=== PATIENT | female | born 1955 | race Caucasian/White ===

== ENCOUNTER → 2023-11-09 06:32 | Day surgery (SDC) | payer MEDICARE, OTHER, SELFPAY ==
[2023-11-09 09:38] LABS: Glucose - Point of Care 224 mg/dl (70-99)
== END ==
LOC: GI 06:32
PROVIDERS: ATTENDING PHYSICIAN Internal Medicine
DX: D50.9 Iron deficiency anemia, unspecified (principal); Z79.01 Long term (current) use of anticoagulants; K63.89 Other specified diseases of intestine; K29.50 Unspecified chronic gastritis without bleeding; D12.6 Benign neoplasm of colon, unspecified; R13.10 Dysphagia, unspecified; K44.9 Diaphragmatic hernia without obstruction or gangrene; K22.89 Other specified disease of esophagus
CPT/HCPCS: 45338; 45335; 43239; 88305; 82962; 87220; 88342

== ENCOUNTER 2023-11-19 12:42 | Outpatient (RCR) | payer MEDICARE, OTHER, SELFPAY ==
[2023-11-19 13:10] VITALS: BP 159/72
[2023-11-19] MEDS: INJECTAFER 265 MG IV (13:24)
[2023-11-19 14:19] VITALS: BP 150/75
== END 2023-11-22 09:30 | disposition home or self-care (01) ==
LOC: OID 12:42
PROVIDERS: ATTENDING PHYSICIAN Internal Medicine; FAMILY PHYSICIAN Internal Medicine Cardiovascular Disease
DX: D64.9 Anemia, unspecified (principal); I48.91 Unspecified atrial fibrillation; J44.9 Chronic obstructive pulmonary disease, unspecified; Z79.01 Long term (current) use of anticoagulants
CPT/HCPCS: 96365; J1439

== ENCOUNTER 2023-11-25 13:48 | Outpatient (RCR) | payer MEDICARE, OTHER, SELFPAY ==
[2023-11-25 13:50] VITALS: BP 113/57
[2023-11-25] MEDS: INJECTAFER 265 MG IV (14:21)
[2023-11-25 15:15] VITALS: BP 117/53
== END 2023-11-26 08:56 | disposition home or self-care (01) ==
LOC: OID 13:48
PROVIDERS: ATTENDING PHYSICIAN Internal Medicine; FAMILY PHYSICIAN Internal Medicine Cardiovascular Disease
DX: D64.9 Anemia, unspecified (principal); I48.91 Unspecified atrial fibrillation; J44.9 Chronic obstructive pulmonary disease, unspecified; E66.01 Morbid (severe) obesity due to excess calories; Z68.39 Body mass index [BMI] 39.0-39.9, adult; Z79.01 Long term (current) use of anticoagulants; Z98.0 Intestinal bypass and anastomosis status
CPT/HCPCS: 96365; J1439

== ENCOUNTER → 2024-02-16 06:23 | Day surgery (SDC) | payer MEDICARE, OTHER, SELFPAY ==
[2024-02-16 07:46] LABS: Glucose - Point of Care 217 mg/dl (70-99)
== END ==
LOC: GI 06:23
PROVIDERS: ATTENDING PHYSICIAN Internal Medicine
DX: K52.9 Noninfective gastroenteritis and colitis, unspecified (principal); K51.40 Inflammatory polyps of colon without complications; K63.89 Other specified diseases of intestine; D50.9 Iron deficiency anemia, unspecified; Z79.01 Long term (current) use of anticoagulants; Z87.19 Personal history of other diseases of the digestive system; Z90.49 Acquired absence of other specified parts of digestive tract
CPT/HCPCS: 45338; 45331; 88305; 82962

== ENCOUNTER → 2024-02-24 09:50 | Outpatient (REF) | payer MEDICARE, OTHER, SELFPAY | LOC: HWEVLT 09:50 | PROVIDERS: ATTENDING PHYSICIAN Radiology Vascular & Interventional Radiology | DX: I83.893 Varicose veins of bilateral lower extremities with other complications (principal) | CPT/HCPCS: 93970 ==

== ENCOUNTER → 2024-04-11 09:54 | Outpatient (REF) | payer MEDICARE, OTHER, SELFPAY | LOC: MRI 3T 09:54 | PROVIDERS: ATTENDING PHYSICIAN Internal Medicine; FAMILY PHYSICIAN Physician Assistant Medical | DX: D50.0 Iron deficiency anemia secondary to blood loss (chronic) (principal); K52.9 Noninfective gastroenteritis and colitis, unspecified | CPT/HCPCS: 72197; 74183; A9575 ==

== ENCOUNTER → 2024-10-31 09:35 | Outpatient (REF) | payer MEDICARE, OTHER, SELFPAY | LOC: HWEVLT 09:35 | PROVIDERS: ATTENDING PHYSICIAN Radiology Vascular & Interventional Radiology | DX: I83.892 Varicose veins of left lower extremity with other complications (principal) | CPT/HCPCS: 36478; C1769 ==

== ENCOUNTER → 2024-11-15 11:39 | Outpatient (REF) | payer MEDICARE, OTHER, SELFPAY | LOC: HWEVLT 11:39 | PROVIDERS: ATTENDING PHYSICIAN Radiology Diagnostic Radiology | DX: I83.892 Varicose veins of left lower extremity with other complications (principal) | CPT/HCPCS: 93971 ==

== ENCOUNTER 2025-04-19 07:36 | Day surgery (SDC) | payer MEDICARE, OTHER, SELFPAY ==
[2025-04-19] VITALS (20 sets, daily range): BP systolic 96–137; BP diastolic 60–76; BMI 40.8
[2025-04-19] MEDS: LOW STRENGTH ASPIRIN 324 MG PO (08:21)
[2025-04-19 08:27] LABS: Glucose - Point of Care 203 mg/dl (70-99)
[2025-04-19 10:40] LABS: ACT-LR - POC 327 Seconds (116-155)
[2025-04-19 10:53] LABS: ACT-LR - POC 223 Seconds (116-155)
[2025-04-19 11:49] LABS: ACT-LR - POC 192 Seconds (116-155)
--- NOTE | 2025-04-19 19:11 | ITS.CL.CATH ---
[facility] - Catheterization
Cardiac Catheterization
Procedure Report:
LEFT AND RIGHT HEART CATHETERIZATION
Date of Procedure: April 19, 2025
Referring: Dr. Ling Gómez
PROCEDURES:
1. Left heart catheterization, coronary angiogram.
2. Moderate sedation.
3. Right heart catheterization
4. Functional physiologic testing with IFR of mid LAD.
5. Functional physiologic testing with IFR of mid RCA.
INDICATION: Exertional chest discomfort and MCGEE
ACCESS: 1. Left radial artery, 6Fr. sheath, under US guidance.
2. Right common femoral vein, 6Fr sheath, under Us guidance using micropuncture kit.
HEMODYNAMICS : (mmHg)
RA (m) : 15
RV (s/d,m) : 42/11, 16
PA (s/d, m) : 40/21, 30
PCWP (m) : 25
PA saturation: 68.0% on room air
AO saturation: 95.0% on room air
RA saturation: 68.1% on room air
Cardiac Output : 5.77 L/min
Cardiac Index : 2.89 L/min/m-2
Systemic vascular resistance: 1288 dsc^(-5)
Pulmonary vascular resistance: 1.91 smith unit
AO (s/d) : 145/73
LVEDP : 26
No significant gradient across the aortic valve to suggest aortic stenosis.
CORONARY FINDINGS
Dominance: Right
Left Main Trunk (LMT): Large caliber vessel that gives rise to the LAD and LCx branches and is free of angiographic disease.
Left Anterior Descending Artery (LAD): Large caliber vessel that gives off 1 major diagonal branch as it courses along the anterior inter-ventricular groove before wrapping around the cardiac apex. Mid LAD is heavily calcified with 50-60% stenosis
distal to D1. iFR negative at 0.98. Distal LAD has eccentric 40% stenosis. D1 has ostial 40-50% stenosis.
Left Circumflex Artery (LCx): Large caliber vessel that gives off 2 major obtuse marginal (OM) branches as it courses along the atrio-ventricular (AV) groove. There is mild diffuse plaque.
Right Coronary Artery (RCA): Large caliber dominant vessel that gives rise to the posterior descending artery (RPDA) and postero-lateral ventricular (RPLV) branches distally. The mid RCA is heavily calcified with diffuse tubular 50% stenosis. RPDA
has diffuse mild to moderate plaque. iFR negative at 0.96.
HEMODYNAMIC ASSESSMENT OF THE MID LAD WITH A V[place]CANO OMNI WIRE: The origin of the left coronary artery was cannulated with a 6 Fr EBU 3.5 guide catheter. Intravenous heparin was administered and the ACT was followed during the procedure. Two
hundred micrograms of intracoronary nitroglycerin was given through the guide catheter. A [place] Omni wire was advanced to the guide catheter tip and normalized just outside the guide catheter. The Omni wire was then carefully manipulated across
the stenosis in the mid LAD with the iFR above the ischemic threshold serially measuring 0.96, 0.9. The Omni wire was then pulled back to the guide catheter where the Pd/Pa measured 1.0 confirming no baseline drift in pressure readings.
HEMODYNAMIC ASSESSMENT OF THE MID RCA WITH A VOL[place]O OMNI WIRE: Decision was made to proceed with mid RCA interrogation with iFR. The origin of the right coronary artery was cannulated with a 6 Fr JR4 guide catheter. Two hundred micrograms of
intracoronary nitroglycerin was given through the guide catheter. A [place] Omni wire was advanced to the guide catheter tip and normalized just outside the guide catheter. The Omni wire was then carefully manipulated across the stenosis in the
mid RCA with the iFR above the ischemic threshold serially measuring 0.98, 0.99. The Omni wire was then pulled back to the guide catheter where the Pd/Pa measured 1.0 confirming no baseline drift in pressure readings.
SEDATION: 37 minutes of procedural sedation was utilized. IV Midazolam and IV Fentanyl were administered. An independent medical information specialist was present to assist with and help manage the patient's level of consciousness and physiologic status.
RADIATION SUMMARY: Fluoro Time (min): 7.3, Dose (mGy): 401.09, DAP (Gy.cm2) : 30.15
Closure Device: There were no immediate intra-procedural complications. The sheath was pulled in the laboratory supervisor and a vascular-band applied to the right wrist for radial artery hemostasis using the patent hemostasis technique.
CONCLUSIONS
1. Mid LAD is heavily calcified with 50-60% stenosis distal to D1. iFR negative at 0.98. Distal LAD has eccentric 40% stenosis. D1 has ostial 40-50% stenosis.
2. The mid RCA is heavily calcified with diffuse tubular 50% stenosis. RPDA has diffuse mild to moderate plaque. iFR negative at 0.96.
3. Elevated left and right filling pressures with normal cardiac outpt.
RECOMMENDATIONS
1. Wean radial band per protocol. Monitor right hand perfusion and for bleeding from the radial site following removal of the vascular-band following trans-radial access.
2. Continue aggressive medical therapy and risk factor modification for secondary CAD prevention.
3. Hydrate with normal saline to mitigate the risk of contrast-induced acute kidney injury.
4. Follow-up with Dr. Gómez
Copy to: Dr. Ling Gómez.
Rachelle Padgett MD, [facility]
== END 2025-04-19 15:00 | disposition home or self-care (01) ==
LOC: CATH 07:36
PROVIDERS: ATTENDING PHYSICIAN Internal Medicine Interventional Cardiology; FAMILY PHYSICIAN Physician Assistant Medical; OTHER PHYSICIAN Internal Medicine Cardiovascular Disease
DX: I25.10 Atherosclerotic heart disease of native coronary artery without angina pectoris (principal); R06.09 Other forms of dyspnea; R07.89 Other chest pain; I11.0 Hypertensive heart disease with heart failure; I50.32 Chronic diastolic (congestive) heart failure; I70.0 Atherosclerosis of aorta; I48.0 Paroxysmal atrial fibrillation
CPT/HCPCS: 93799; 82962; 85347; 93460; 99152; 99153; C1769; C1894; Q9967